=== PATIENT | female | born 1960 | race Caucasian/White ===

== ENCOUNTER 2020-03-16 13:14 | Inpatient (IN) | payer BC ==
[~2020-03-16] VITALS: Ht 154.9 cm; Wt 59.0 kg
--- NOTE | 2020-03-16 13:57 | PHYS DOC ---
General Adult EDM: Chief Complaint: SHORTNESS OF BREATH HPI: HPI: 59-year-old female past medical history significant for tobacco dependence, presents the ED brought in by EMS with complaints of worsening, exertional shortness of breath and chest tightness since 8pm last night. No h/o lung disease. EMS gave aspirin, no change with nitro. No h/o diagnosed lung disease. Review of Systems: Review of Systems: Constitutional: Denies fever or chills Eyes: Denies change in visual acuity HENT: Denies nasal congestion or sore throat Respiratory: Denies cough or hemoptysis Cardiovascular: Denies syncope or edema GI: Denies abdominal pain, nausea, vomiting, bloody stools or diarrhea : Denies dysuria Musculoskeletal: Denies back pain or joint pain Integument: Denies rash Neurologic: Denies headache, focal weakness or sensory changes Endocrine: Denies polyuria or polydipsia Lymphatic: Denies swollen glands Psychiatric: Denies depression or anxiety Allergies: Allergies: Allergies Coded Allergies Type Severity Reaction Last Updated Verified Sulfa (Sulfonamide Antibiotics) Allergy Unknown 03/16/20 Yes Physical Exam: PE: Constitutional: Afebrile, tachypneic, able to speak in full sentences HENT: Normocephalic, atraumatic, bilateral external ears normal, oropharynx moist Eyes: EOMI, conjunctiva normal, no discharge. [] Neck: Normal range of motion, supple, no stridor. [] Cardiovascular: Sinus tachycardia, S1-S2 present Lungs & Thorax: Tachypneic, shallow breathing, speaking in full sentences, not requiring oxygen, expiratory wheezing Abdomen: soft, no tenderness, Skin: Warm, dry, no erythema, no rash. [] Extremities: No tenderness, no cyanosis, no clubbing, ROM intact, no edema. [] Neurologic: Alert and oriented X 3, normal motor function, normal sensory function, no focal deficits noted. [] Psychologic: Affect normal, judgement normal, mood normal. [] EKG: EKG: Sinus rhythm at 90 bpm, no axis deviation, normal intervals, no T wave inversions, no ST elevations or ST depressions Radiology/Procedures: Radiology/Procedures: IMAGING REPORT Signed PATIENT: MAGDI RAMESH ACCOUNT: [id number] : 1960 LOCATION: ER AGE: 59 SEX: F EXAM STATUS: REG ER ORD. PHYSICIAN: GEORGINA JARRETT DO REASON: pui, short of air PROCEDURE: PORTABLE CHEST 1V INDICATION: Reason: pui, short of air / Spl. Instructions: / History: COMPARISON: None. FINDINGS: Single view of chest obtained. Hyperexpanded lungs with disorganized pulmonary markings bilaterally and mild interstitial opacity. Linear opacity right lung base. Cardiac silhouette unremarkable. IMPRESSION: * Hyperexpanded lungs with some disorganization of the pulmonary markings bilaterally and mild interstitial opacity. Would correlate for possible causes such as chronic interstitial lung disease. Given the interstitial opacities mild edema or interstitial infiltrate is not excluded. * Mild linear opacity right lung base could be from scarring or atelectasis. Electronically signed by: Alexandra Kinsey MD (03/16/2020 2:01 PM) [id number] DICTATED AND SIGNED BY: ALEXANDRA KINSEY MD DATE: 03/16/20 1405 CC: PCP,NO; GEORGINA JARRETT DO ~MTH0 0 Heart Score: Risk Factors: Risk Factors: DM, Current or recent (<one month) smoker, HTN, HLP, family history of CAD, obesity. Risk Scores: Score 0 - 3: 2.5% MACE over next 6 weeks - Discharge Home Score 4 - 6: 20.3% MACE over next 6 weeks - Admit for Clinical Observation Score 7 - 10: 72.7% MACE over next 6 weeks - Early Invasive Strategies Course & Med Decision Making: Course & Med Decision Making Pertinent Labs and Imaging studies reviewed. (See chart for details) Concern for sepsis secondary to community-acquired pneumonia and new onset COPD exacerbation, Covid pending, patient is a PUI. Labs show renal insufficiency. Patient saturating 93 to 97% on room air slightly tachypneic. Will admit for airway monitoring, breathing treatments and further medical management. Patient stable at time of admission and agrees with this plan. I have spoken with the patient and/or caregivers. I have explained the patient's condition, diagnosis and treatment plan based on the information available to me at this time. I have answered the patient's and/or caregivers questions and answered any concerns. The patient and/or caregivers have as good an understanding of the patient's diagnosis, condition and treatment plan as can be expected at this point. The patient has been stabilized within the capability of the emergency department. The patient will be transported for further care and management or will be moved to an observation or inpatient service. I have communicated with the staff or medical practitioner taking over this patient's care. Dragon Disclaimer: Dragon Disclaimer: This electronic medical record was generated, in whole or in part, using a voice recognition dictation system. Departure Departure: Impression: Primary Impression: COPD exacerbation Additional Impressions: CAP (community acquired pneumonia) Person under investigation for COVID-19 Sepsis Renal insufficiency Disposition: 09 ADMITTED INPT THIS HOSP Admitting Physician: Mason Harper Condition: STABLE Referrals: PCPALANA (PCP) GEORGINA JARRETT DO Mar 16, 2020 13:57
[2020-03-16 14:02] LABS: BASO % 0 % (0-3); EOS # 0.1 x10^3/uL (0.0-0.7); EOS % 1 % (0-3); HEMATOCRIT 40.1 % (36.0-47.0); HEMOGLOBIN 13.5 g/dL (12.0-15.5); LYMPH # 0.9 x10^3/uL (1.0-4.8); LYMPH % 6 % (24-48); MEAN CORPUSCULAR HEMOGLOBIN 32 pg (25-35); MEAN CORPUSCULAR HGB CONC 34 g/dL (31-37); MEAN CORPUSCULAR VOLUME 95 fL (79-100); MONO # 0.3 x10^3/uL (0.0-1.1); MONO % 3 % (0-9); NEUT # 12.2 x10^3uL (1.8-7.7); NEUT % 90 % (31-73); PLATELET COUNT 413 x10^3/uL (140-400); RED BLOOD COUNT 4.23 x10^6/uL (3.50-5.40); RED CELL DISTRIBUTION WIDTH 13.6 % (11.5-14.5); WHITE BLOOD COUNT 13.6 x10^3/uL (4.0-11.0)
--- NOTE | 2020-03-16 14:04 | RAD ---
INDICATION: Reason: pui, short of air / Spl. Instructions: / History: COMPARISON: None. FINDINGS: Single view of chest obtained. Hyperexpanded lungs with disorganized pulmonary markings bilaterally and mild interstitial opacity. Linear opacity right lung base. Cardiac silhouette unremarkable. IMPRESSION: * Hyperexpanded lungs with some disorganization of the pulmonary markings bilaterally and mild interstitial opacity. Would correlate for possible causes such as chronic interstitial lung disease. Given the interstitial opacities mild edema or interstitial infiltrate is not excluded. * Mild linear opacity right lung base could be from scarring or atelectasis. Electronically signed by: Bradley Stallings MD (03/16/2020 2:01 PM) [id number]
[2020-03-16] MEDS ORDERED: AZITHROMYCIN 500 MG in IV NORMAL SALINE 250ML 250 ML IV ONE (14:15)
[2020-03-16] MEDS ORDERED: IV NORMAL SALINE 1,000ML 1,000 ML IV ONE ×2 (14:15)
[2020-03-16 14:18] LABS: CALCIUM 8.9 mg/dL (8.5-10.1); CREATININE 1.2 mg/dL (0.6-1.0); GFR 46.3; POTASSIUM 3.7 mmol/L (3.5-5.1)
--- NOTE | 2020-03-16 14:23 | EKG ---
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
[2020-03-16 14:31] LABS: ALBUMIN 3.8 g/dL (3.4-5.0); ALBUMIN/GLOBULIN RATIO 1.2 (1.0-1.7); TOTAL BILIRUBIN 0.2 mg/dL (0.2-1.0)
[2020-03-16] MEDS ORDERED: IV NORMAL SALINE 250ML 250 ML ONE (14:31)
[2020-03-16] MEDS ORDERED: cefTRIAXone SODIUM 1 GM VIAL ONE (14:32)
[2020-03-16] MEDS ORDERED: AZITHROMYCIN 500 MG VIAL. IV ONE (14:32)
[2020-03-16] MEDS ORDERED: IV NORMAL SALINE 50ML 50 ML ONE (14:32)
[2020-03-16 15:09] LABS: % BANDS 1 % (0-9); % EOS 2 % (0-5); % LYMPHS 4 % (24-48); % MONOS 5 % (0-10); % SEGS 88 % (35-66)
[2020-03-16 15:10] LABS: PLT ESTIMATE ADEQUATE (ADEQUATE)
[2020-03-16] MEDS ORDERED: IPRATRPIUM/ALBUTEROL 0.5/2.5MG 3 ML NEBU. ONE (15:24)
[2020-03-16] MEDS ORDERED: IPRATRPIUM/ALBUTEROL 0.5/2.5MG 3 ML NEBU. NEB SCH (16:00)
[2020-03-16] MEDS ORDERED: ACETAMINOPHEN 325 MG TABLET PO PRN (16:00)
[2020-03-16] MEDS ORDERED: ONDANSETRON PF 4 MG/2 ML VIAL. IVP PRN (16:00)
[2020-03-16 16:45] VITALS: BP 139/79
[2020-03-16 19:34] VITALS: BP 121/55
[2020-03-16] MEDS: IPRATROPIUM/ALBUTEROL 20/100mcg/INH INHALER. INH SCH (20:54)
[2020-03-16] MEDS: methylPREDNISolone SOD SUCC PF 40 MG/ML VIAL. IV SCH (20:55)
--- NOTE | 2020-03-16 21:46 | HP ---
ADMIT DATE: 03/16/2020 HISTORY OF PRESENT ILLNESS: The patient is a 59-year-old female patient who came to the Emergency Room. She was actually brought by the EMS with a complaint of worsening exertional shortness of breath, chest tightness since last night. She has no history of lung disease. EMS gave her aspirin. No change with nitro and no history of diagnosed pulmonary disease. She was extensively investigated in the Emergency Room and has had an EKG, lab work and a chest x-ray. Her lab work showed mild leukocytosis with a white cell count of 13,600. Her chemistry was mostly unremarkable. Her D-dimer was only 0.27 and her chest x-ray showed markedly hyperexpanded lungs with some disorganization of the pulmonary markings bilaterally with mild interstitial opacity with the possibility of chronic interstitial lung disease versus mild edema, interstitial infiltrate. The patient was admitted with a diagnosis of COPD exacerbation, community-acquired pneumonia and mild renal insufficiency. She was swabbed also to rule out the possibility of COVID-19 infection. 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 PAST MEDICAL HISTORY: Unremarkable. PAST SURGICAL HISTORY: Significant for 2 C-sections. ALLERGIES: SHE IS ALLERGIC TO SULFA DRUGS. MEDICATIONS: She is currently on following medications: She is only on multivitamin and Zyrtec. She was started on nitrofurantoin about 2 days ago for UTI. FAMILY HISTORY: Noncontributory. SOCIAL HISTORY: She is and lives with her . She has 2 sons. She continues to smoke, but does not drink alcohol or use any recreational drugs. 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 PHYSICAL EXAMINATION: GENERAL: On arrival to the Emergency Room, she was tachypneic, tachycardic, but there was no pallor, jaundice, cyanosis or thyromegaly. No jugular venous distention. No lower limb edema. VITAL SIGNS: Her heart rate was 118, blood pressure was 134/81, temperature was 98.5, respiratory rate was 32 and oxygen saturation was 92% on 3 liters of oxygen. HEAD, EYES, EARS, NOSE AND THROAT: Showed normocephalic, atraumatic. NECK: Supple. CARDIAC: Normal first and second heart sounds. No gallop, rub or murmur. CHEST: Showed diffuse expiratory wheezing. No crepitation. ABDOMEN: Soft, nontender. EXTREMITIES: No clubbing, cyanosis or edema. NEUROLOGIC: She was alert, oriented x 3 with normal motor and sensory function. PSYCHOLOGICAL: Her affect, judgment and mood were normal. LABORATORY DATA: Her EKG showed that she was in sinus rhythm at a rate of 90 beats per minute with no evidence of ST segment elevation or depression. Her chest x-ray showed hyperexpanded lungs with some disorganization of the pulmonary markings bilaterally with mild interstitial opacity with correlate for possible causes such as chronic interstitial lung disease and/or mild edema. Her lab work showed a white cell count of 13,600, hemoglobin 13.5, hematocrit 40, MCV 95, and platelet count of 113,000 with a manual differential showed 90% polymorphs, 6% lymphocytes and 3% monocytes. Her D-dimer was 0.27 mg/dL and her chemistry showed mild hyponatremia with a serum sodium 133, potassium 3.7, chloride 99, bicarbonate 26, anion gap of 8, BUN 11, creatinine 1.2, estimated GFR was 46 mL per minute. Her glucose 116, calcium was 8.9, lactic acid was 1.1. Total bilirubin, AST, ALT were normal. Alkaline phosphatase slightly elevated. Total protein was 7, albumin was 3.8. First set of cardiac enzymes showed troponin to be less than 0.017. ASSESSMENT AND PLAN: The patient was treated with IV ceftriaxone as well as Zithromax as well as albuterol. I will add also steroids and I discontinued her nitrofurantoin as she was getting ceftriaxone, which should take care of the urinary tract infection. JOSELITO ARRIOLA MD DR: YANY/ashley JOB#: [id number] / [id number]
[2020-03-16 22:50] VITALS: BP 132/62
[2020-03-17 05:15] VITALS: BP 112/63
[2020-03-17] MEDS: methylPREDNISolone SOD SUCC PF 40 MG/ML VIAL. IV SCH ×3 (05:35→21:59)
[2020-03-17 06:26] LABS: HEMATOCRIT 40.4 % (36.0-47.0); HEMOGLOBIN 13.5 g/dL (12.0-15.5); RED BLOOD COUNT 4.24 x10^6/uL (3.50-5.40); RED CELL DISTRIBUTION WIDTH 13.7 % (11.5-14.5); WHITE BLOOD COUNT 10.1 x10^3/uL (4.0-11.0)
[2020-03-17 06:40] LABS: ALBUMIN 3.3 g/dL (3.4-5.0); CALCIUM 8.8 mg/dL (8.5-10.1); CREATININE 0.7 mg/dL (0.6-1.0); GFR 86.2; POTASSIUM 3.9 mmol/L (3.5-5.1); TOTAL BILIRUBIN 0.3 mg/dL (0.2-1.0); TOTAL PROTEIN 6.7 g/dL (6.4-8.2)
[2020-03-17] MEDS: IPRATROPIUM/ALBUTEROL 20/100mcg/INH INHALER. INH SCH ×4 (08:00→20:00)
[2020-03-17] MEDS: AZITHROMYCIN 250 MG TABLET. PO SCH (09:09)
[2020-03-17] MEDS: LACTOBACILLUS RHAMNOSUS GG 1 CAPSULE. PO SCH ×2 (09:09→21:58)
[2020-03-17 10:45] VITALS: BP 126/69
[2020-03-17 14:55] VITALS: BP 134/62
[2020-03-17 17:58] VITALS: BP 120/66
[2020-03-17 22:30] VITALS: BP 127/58
[2020-03-18] MEDS: methylPREDNISolone SOD SUCC PF 40 MG/ML VIAL. IV SCH ×3 (05:41→22:00)
[2020-03-18 06:05] VITALS: BP 143/69
[2020-03-18 06:21] LABS: HEMATOCRIT 39.8 % (36.0-47.0); HEMOGLOBIN 13.2 g/dL (12.0-15.5); RED BLOOD COUNT 4.19 x10^6/uL (3.50-5.40); WHITE BLOOD COUNT 11.4 x10^3/uL (4.0-11.0)
[2020-03-18 06:33] LABS: ALBUMIN 3.2 g/dL (3.4-5.0); CALCIUM 8.7 mg/dL (8.5-10.1); CREATININE 0.8 mg/dL (0.6-1.0); GFR 73.9; TOTAL BILIRUBIN 0.1 mg/dL (0.2-1.0); TOTAL PROTEIN 6.4 g/dL (6.4-8.2)
[2020-03-18 06:34] LABS: POTASSIUM 4.4 mmol/L (3.5-5.1)
[2020-03-18] MEDS: IPRATROPIUM/ALBUTEROL 20/100mcg/INH INHALER. INH SCH ×4 (08:50→20:00)
[2020-03-18] MEDS: LACTOBACILLUS RHAMNOSUS GG 1 CAPSULE. PO SCH ×2 (08:50→22:00)
[2020-03-18] MEDS: AZITHROMYCIN 250 MG TABLET. PO SCH (08:50)
[2020-03-18 10:31] VITALS: BP 129/58
--- NOTE | 2020-03-18 13:00 | PN ---
DATE: 03/17/2020 SUBJECTIVE: The patient is resting, slightly propped up in bed, in no apparent distress. She stated she did very well this morning and afternoon, but later this afternoon, she started having cough again. PHYSICAL EXAMINATION: GENERAL: When I examined her, she looked well and was clearly in no apparent respiratory distress. No pallor, jaundice, cyanosis or thyromegaly. No jugular venous distention. No limb edema. VITAL SIGNS: Her heart rate was 91, blood pressure was 134/62, temperature was 98, respiratory rate was 20, and oxygen saturation was 95% on room air. HEENT: Normocephalic, atraumatic. NECK: Supple. HEART: Showed normal first and second heart sounds. No gallop, rub or murmur. CHEST: Showed central trachea, equal chest expansion, reduced air entry, vesicular sounds with crepitation mostly on the left side posteriorly. ABDOMEN: Distended, soft, nontender. NEUROLOGIC: She was grossly intact. Her intake over the last 24 hours was incompletely recorded. LABORATORY DATA: This morning showed a white cell count of 10,000, hemoglobin 13, hematocrit 40, MCV 95, and platelet count 389,000. Her chemistry showed a serum sodium 135, potassium 3.9, chloride 102, bicarbonate 20, anion gap of 13, BUN 8, creatinine 0.7, estimated GFR was 86 mL per minute. Her glucose was 114, lactic acid was 1.1, calcium was 8.8. Total bilirubin and alkaline phosphatase are normal. AST, ALT slightly elevated. Total protein 6.7, albumin was 3.3. Her D-dimer was only 0.27. ASSESSMENT: 1. Acute hypoxic respiratory failure. 2. Acute bronchitis. 3. Chronic obstructive pulmonary disease exacerbation. 4. Nicotine dependence. PLAN: My plan is to continue with all her current medications including ceftriaxone and Zithromax together with steroids and inhalers. Her COVID-19 still pending at the time of this dictation. JOSELITO ARRIOLA MD DR: YANY/ashley JOB#: [id number] / [id number]
[2020-03-18 14:48] VITALS: BP 146/77
[2020-03-18 19:10] VITALS: BP 151/69
--- NOTE | 2020-03-18 21:01 | PN ---
DATE: 03/18/2020 SUBJECTIVE: The patient is resting, slightly propped up in bed, in no apparent respiratory distress. She denied any complaint. Nursing staff did not voice any concern. She is now able to maintain her oxygen saturation at 95-96% on room air. Her coronavirus by PCR is still pending at the time of this dictation. PHYSICAL EXAMINATION: GENERAL: When I examined her today, she looked well and was clearly in no apparent respiratory distress. No pallor, jaundice, cyanosis or thyromegaly. No jugular venous distention. No limb edema. VITAL SIGNS: Her heart rate was 80, blood pressure was 129/58, temperature 98.3, respiratory rate was 16 and oxygen saturation was 95%. The rest of clinical exam is stable. Her intake over the last 24 hours was 2000, no output was recorded. LABORATORY DATA: As of this morning, her white cell count was 11,400, hemoglobin 13, hematocrit 39, MCV 95 and platelet count of 403,000. Serum sodium was 134, potassium 4.4, chloride 102, bicarbonate 21, anion gap of 11, BUN 9, creatinine 0.8, estimated GFR was 73 mL per minute. Her glucose was 108, calcium was 8.7. Total bilirubin and alkaline phosphatase is normal. AST, ALT slightly elevated, trending upward. Total protein 6.4, albumin 3.2. Her D-dimer was only 0.27. ASSESSMENT: 1. Acute hypoxic respiratory failure. 2. Acute bronchitis. 3. Chronic obstructive pulmonary disease exacerbation. 4. Nicotine dependence. PLAN: To continue with all her current medications including ceftriaxone and Zithromax together with steroids and inhaler. Her COVID-19 is still pending at the time of this dictation. JOSELITO ARRIOLA MD DR: YANY/ashley JOB#: [id number] / [id number]
[2020-03-18 23:23] VITALS: BP 139/61
[2020-03-19 05:22] VITALS: BP 135/73
[2020-03-19] MEDS: methylPREDNISolone SOD SUCC PF 40 MG/ML VIAL. IV SCH (06:00)
[2020-03-19] MEDS: IPRATROPIUM/ALBUTEROL 20/100mcg/INH INHALER. INH SCH ×2 (08:00→12:00)
[2020-03-19] MEDS: AZITHROMYCIN 250 MG TABLET. PO SCH (08:27)
[2020-03-19] MEDS: LACTOBACILLUS RHAMNOSUS GG 1 CAPSULE. PO SCH (08:28)
[2020-03-19 10:39] VITALS: BP 151/70
[2020-03-19] MEDS ORDERED: CEFD300C PO (13:06)
[2020-03-19] MEDS ORDERED: AZIT250T PO (13:07)
--- NOTE | 2020-03-19 18:27 | DS ---
DATE OF DISCHARGE: 03/19/2020 HOSPITAL COURSE: The patient is a 59-year-old female patient who was admitted through the Emergency Room with complaint of worsening exertional shortness of breath, chest tightness since the night before admission. She has no history of lung disease. EMS gave her aspirin. She was extensively investigated in the Emergency Room, had an EKG and lab work and chest x-ray. Her lab work showed mild leukocytosis with white cell count of 13,600. Her chemistry was mostly unremarkable. D-dimer was 0.27. Her chest x-ray showed that she has markedly hyperexpanded lungs with some disorganization of the pulmonary markings bilaterally with mild interstitial opacity, possible chronic interstitial lung disease versus mild edema. She was admitted with diagnosis of COPD exacerbation and community-acquired pneumonia, mild renal insufficiency. She was swabbed for possible COVID-19 infection. 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 She was treated with IV ceftriaxone, Zithromax as well as steroids and she remained well. She has continued to be afebrile, hemodynamically stable. Her oxygen remained at 95% to 96% on room air. Her white cell count and kidney functions are normal. She has mild transaminitis. We did actually her coronavirus rapid testing, it came back negative and as she remained hemodynamically stable and afebrile, a decision was made to discharge her home to continue treatment with antibiotic and tapering course of steroids as an outpatient. PHYSICAL EXAMINATION: GENERAL: When I saw her this afternoon, she looked well and was clearly in no apparent respiratory distress. No pallor, jaundice, cyanosis or thyromegaly. No jugular venous distention. No limb edema. VITAL SIGNS: Her heart rate was 65, blood pressure was 151/70, temperature was 98.1, respiratory rate was 18 and oxygen saturation was 96%. HEAD, EYES, EARS, NOSE AND THROAT: Showed normocephalic, atraumatic. NECK: Supple. CARDIAC: Normal first and second heart sounds. No gallop, rub or murmur. CHEST: Clear to auscultation. No crepitation or rhonchi. ABDOMEN: Distended, soft, nontender. NEUROLOGIC: She is awake, alert, responding appropriately. All cranial nerves intact. EXTREMITIES: She moves extremities without difficulty. LABORATORY DATA: Showed a white cell count of 11,400, hemoglobin 13, hematocrit 39, MCV 95, and platelet count 403,000. Serum sodium was 134, potassium 4.4, chloride 102, bicarbonate 21, anion gap of 11, BUN 9, creatinine 0.8, estimated GFR was 74 mL per minute. Her glucose 108, calcium was 8.7. Total bilirubin and alkaline phosphatase were normal. AST, ALT is elevated. Her total protein 6.4, albumin 3.2. D-dimer was 0.27 and her SARS-CoV-2 antigen rapid testing was negative. DISCHARGE MEDICATIONS: She was discharged home to continue on cefdinir 300 mg twice a day for 5 more days and azithromycin 250 mg p.o. daily for 3 days as well as tapering course of steroids. FINAL DISCHARGE DIAGNOSES: 1. Acute hypoxic respiratory failure, resolved. 2. Acute bronchitis, improved. 3. Chronic obstructive pulmonary disease exacerbation. 4. Nicotine dependence. Her COVID-19 rapid test was negative. JOSELITO ARRIOLA MD DR: YANY/ashley JOB#: [id number] / [id number]
== END 2020-03-19 13:28 | disposition home or self-care (01) | DRG 871 ==
LOC: ER 13:14 → 1 SOUTH 15:48
PROVIDERS: ADMIT Internal Medicine; ATTEND Internal Medicine
DX: A41.9 Sepsis, unspecified organism (principal); J18.9 Pneumonia, unspecified organism; J96.01 Acute respiratory failure with hypoxia; J44.0 Chronic obstructive pulmonary disease with (acute) lower respiratory infection; J44.1 Chronic obstructive pulmonary disease with (acute) exacerbation; N39.0 Urinary tract infection, site not specified; F17.200 Nicotine dependence, unspecified, uncomplicated; J20.9 Acute bronchitis, unspecified; N28.9 Disorder of kidney and ureter, unspecified; Z20.828 Contact with and (suspected) exposure to other viral communicable diseases; Z88.2 Allergy status to sulfonamides
CPT/HCPCS: 36415; 71045; 80053; 83605; 83880; 84484; 85007; 85025; 85027; 85379; 87040; 87426; 93005; 94640; 96365; 96368; J0456; J0696; J2920; J7050; U0003; 99285-25; J7030

== ENCOUNTER 2021-01-13 17:58 | Emergency (ER) | payer BC ==
[~2021-01-13] VITALS: Ht 154.9 cm; Wt 61.9 kg
[~2021-01-13 17:58] MED LIST: AZIT250T PO; CEFD300C PO
[2021-01-13] MEDS ORDERED: ACETAMINOPHEN 500 MG TABLET PO ONE (18:30)
--- NOTE | 2021-01-13 18:31 | PHYS DOC ---
Past History Past Medical History: No Pertinent History Past Surgical History: No Surgical History Alcohol Use: None Adult General Chief Complaint Chief Complaint: WRIST PAIN HPI HPI Patient is a 60-year-old female who past medical history significant for carpal tunnel who presents for wrist pain. States she has some wrist pain and want to be sure that nothing was broken as she is having some carpal tunnel surgery next week. States that she had pain, 5 out of 10, dull and achy in nature in the base of her palm. Denies any recent traumas, illnesses, fevers. States she is taken some Tylenol and ibuprofen earlier this morning but had not tried any thing else. Review of Systems Review of Systems Review of systems otherwise unremarkable except noted in HPI Allergies Allergies Allergies Coded Allergies Type Severity Reaction Last Updated Verified Sulfa (Sulfonamide Antibiotics) Allergy Unknown 03/16/20 Yes Physical Exam Physical Exam Constitutional: Well developed, well nourished, no acute distress, non-toxic appearance. [] Cardiovascular:Heart rate regular rhythm, no murmur [] Lungs & Thorax: No respiratory distress Extremities: Mild tenderness at anterior wrist with no obvious swelling, deformities. Neurovascular exam intact., no cyanosis, no clubbing, ROM intact, no edema. [] Neurologic: Alert and oriented X 3, normal motor function, normal sensory function, no focal deficits noted. [] Psychologic: Affect normal, judgement normal, mood normal. [] Current Patient Data Vital Signs Vital Signs Date Time Temp Pulse Resp B/P (MAP) Pulse Ox O2 Delivery O2 Flow Rate FiO2 01/13/21 18:23 77 18 156/88 (110) 99 EKG EKG [] Radiology/Procedures Radiology/Procedures [] Indication: Pain and stiffness. Comparison: None. Findings: A few carpal cysts are identified. No aggressive erosion, fracture or periostitis. Relatively mild arthrosis at the triscaphe and thumb CMC joints. Mild subchondral cystic change at the base of the fifth metacarpal. Advanced arthrosis at the thumb MCP joint. The scapholunate interval is within normal limits. Neutral ulnar variance. Impression: Scattered cystic foci primarily subchondral in distribution and most typical of osteoarthrosis such as at the thumb CMC, triscaphe and fifth CMC joints. The most advanced arthrosis is at the thumb MCP joint. There are no radiographic findings of an inflammatory arthritis. No acute fracture. Electronically signed by: DELISA BIRMINGHAM MD (01/13/2021 7:12 PM) [facility] Heart Score C/O Chest Pain: No Risk Factors: Risk Factors: DM, Current or recent (<one month) smoker, HTN, HLP, family history of CAD, obesity. Risk Scores: Risk Factors: DM, Current or recent (<one month) smoker, HTN, HLP, family history of CAD, obesity. Course & Med Decision Making Course & Med Decision Making Patient is a 60-year-old female presents with wrist pain Notable for hypertension. Physical exam noted above. Patient given Tylenol and Lidoderm patch as well as ice pack. Imaging with no acute osseous abnormalities. Discussed symptom management at home. Advised to keep her upcoming appointment for surgery. Also advised to call primary care physician on Friday to update on ED visit. Gave return precautions to the ED. Patient grateful, verbalized understanding and agreed with plan of discharge. Dragon Disclaimer Dragon Disclaimer This electronic medical record was generated, in whole or in part, using a voice recognition dictation system. Departure Departure: Impression: Primary Impression: Wrist pain Disposition: HOME / SELF CARE / HOMELESS Condition: GOOD Referrals: HOWIE RITTER (PCP) Patient Instructions: Arthralgia, [id number], Arthritis, Degenerative-Brief, Carpal Tunnel Surgery, Carpal Tunnel Syndrome, RICE - Routine Care for Injuries Additional Instructions: Thank you for coming into the emergency department tonight and allowing us to take care of you. Please read the attached information carefully to go back over what we discussed. Please continue a Tylenol, ibuprofen, ice and Lidoderm reg imen as discussed. Please call your primary care physician Friday to update on ED visit and set up a follow-up. Please keep your upcoming appointment for your carpal tunnel surgery and also call your surgeon Friday to let them know about your ED visit. Please come back to the ED with new or concerning symptoms as discussed. JOHN WARREN MD Jan 13, 2021 18:31
[2021-01-13] MEDS ORDERED: LIDOCAINE (700MG/PATCH) PATCH. ONE (18:33)
--- NOTE | 2021-01-13 19:14 | RAD ---
Study: XR RT WRIST 3VIEWS Indication: Pain and stiffness. Comparison: None. Findings: A few carpal cysts are identified. No aggressive erosion, fracture or periostitis. Relatively mild ar throsis at the triscaphe and thumb CMC joints. Mild subchondral cystic change at the base of the fift h metacarpal. Advanced arthrosis at the thumb MCP joint. The scapholunate interval is within normal limits. Neutral ulnar variance. Impression: Scattered cystic foci primarily subchondral in distribution and most typical of osteoarthrosis such a s at the thumb CMC, triscaphe and fifth CMC joints. The most advanced arthrosis is at the thumb MCP j oint. There are no radiographic findings of an inflammatory arthritis. No acute fracture. Electronically signed by: DELISA BIRMINGHAM MD (01/13/2021 7:12 PM) [facility]
[2021-01-13 19:40] VITALS: BP 135/83
[2021-01-13] MEDS ORDERED: PATCH REMOVAL. MC SCH (21:00)
[2021-01-14] MEDS ORDERED: LIDOCAINE (700MG/PATCH) PATCH. TD SCH (09:00)
== END 2021-01-13 19:45 | disposition home or self-care (01) ==
LOC: ER 17:58
DX: M25.531 Pain in right wrist (principal); Z88.2 Allergy status to sulfonamides
CPT/HCPCS: 73110; 99283-25